=== PATIENT | female | born 1940 | race Caucasian/White ===

== ENCOUNTER → 2020-01-07 | Outpatient (CLI) | payer MEDICARE, OTHER ==
[~2020-01-07] MED LIST: Aspir 8181 MG PO; MELO7.5 PO; PRAVASTATIN SOD10 MG PO; ROSU10TA PO; SOLI5; SOLI5 PO; TUMS500 MG PO; Voltaren100 GM TP
[2020-01-07 13:54] LABS: Stool Occult Bld Immuno 1 Positive (NEGATIVE); Stool Occult Bld Immuno 2 Positive (NEGATIVE)
== END | disposition home or self-care (01) ==
LOC: LAB 08:30 → LAB SHORT 08:30
PROVIDERS: Internal Medicine Gastroenterology
DX: R10.31 Right lower quadrant pain (principal); R74.8 Abnormal levels of other serum enzymes
CPT/HCPCS: 82274

== ENCOUNTER 2020-01-13 08:30 | Day surgery (SDC) | payer MEDICARE, OTHER ==
[~2020-01-13] VITALS: Ht 154.9 cm; Wt 65.0 kg
== END 2020-01-13 11:34 | disposition home or self-care (01) ==
LOC: ORSCSDS 08:30
PROVIDERS: Internal Medicine Gastroenterology
PROC: 0DB68ZX Excision of Stomach, Via Natural or Artificial Opening Endoscopic, Diagnostic (ICD-10-PCS; principal; 2020-01-13 10:15)
PROC: 0DBK8ZX Excision of Ascending Colon, Via Natural or Artificial Opening Endoscopic, Diagnostic (ICD-10-PCS; principal; 2020-01-13 10:15)
DX: R10.31 Right lower quadrant pain (principal); R19.5 Other fecal abnormalities; D12.2 Benign neoplasm of ascending colon; R74.8 Abnormal levels of other serum enzymes; K29.70 Gastritis, unspecified, without bleeding; K31.819 Angiodysplasia of stomach and duodenum without bleeding; Z86.010 Personal history of colon polyps; K57.30 Diverticulosis of large intestine without perforation or abscess without bleeding; Z79.899 Other long term (current) drug therapy
CPT/HCPCS: 87081; 88305; J2704; J7120

== ENCOUNTER → 2020-02-26 | Outpatient (CLI) | payer MEDICARE, OTHER ==
[2020-02-26 14:06] LABS: Stool Occult Bld Immuno 1 Positive (NEGATIVE); Stool Occult Bld Immuno 2 Positive (NEGATIVE)
== END | disposition home or self-care (01) ==
LOC: LAB SHORT 11:14 → LAB 11:14
PROVIDERS: Internal Medicine Gastroenterology
DX: R19.5 Other fecal abnormalities (principal)
CPT/HCPCS: 82274

== ENCOUNTER → 2020-04-19 | Outpatient (CLI) | payer MEDICARE, OTHER ==
[2020-04-20 13:45] LABS: Stool Occult Bld Immuno 1 Negative (NEGATIVE); Stool Occult Bld Immuno 2 Negative (NEGATIVE)
== END | disposition home or self-care (01) ==
PROVIDERS: Internal Medicine Gastroenterology
DX: R19.5 Other fecal abnormalities (principal)

== ENCOUNTER 2022-09-21 13:41 | Emergency (ER) | payer MEDICARE, OTHER ==
[~2022-09-21] VITALS: Ht 157.5 cm; Wt 62.6 kg
[2022-09-21 14:19] LABS: BASOPHILS ABSOLUTE AUTO 0.04 K/mm3 (0.00-0.23); BASOPHILS PERCENT AUTO 1 % (0-2); EOSINOPHILS ABSOLUTE AUTO 0.06 K/mm3 (0.00-0.68); EOSINOPHILS PERCENT AUTO 1 % (0-6); Hematocrit 41.3 % (33.0-51.0); Hemoglobin 14.1 g/dL (11.5-16.0); IMMATURE GRAN ABSOLUTE AUTO 0.02 K/mm3 (0.00-0.10); IMMATURE GRAN PERCENT AUTO 0 % (0-1); LYMPHOCYTES ABSOLUTE AUTO 1.43 K/mm3 (0.84-5.20); LYMPHOCYTES PERCENT AUTO 22 % (21-46); MONOCYTES PERCENT AUTO 6 % (4-13); Mean Corpuscular HGB 32.8 pg (26.0-34.0); Mean Corpuscular HGB Conc 34.1 g/dL (31.5-36.5); Mean Corpuscular Volume 96 fL (80-100); Mean Platelet Volume 8.5 fL (9.1-12.4); NEUTROPHILS ABSOLUTE AUTO 4.67 K/mm3 (1.96-9.15); NEUTROPHILS PERCENT AUTO 71 % (41-73); Platelet Count 243 K/mm3 (150-400); RDW Coefficient Variation 12.4 % (11.7-14.2); RDW Standard Deviation 43.8 fL (35.1-46.3); White Blood Cell Count 6.62 K/mm3 (4.00-11.30)
[2022-09-21 14:30] LABS: Bun/Creatinine Ratio 14.7 (12.0-20.0); Creatinine, Blood 0.75 mg/dL (0.40-1.00)
== END 2022-09-21 17:57 | disposition home or self-care (01) ==
LOC: ER 13:41
PROVIDERS: Student in an Organized Health Care Education/Training Program
DX: R07.89 Other chest pain (principal); I10 Essential (primary) hypertension; E78.5 Hyperlipidemia, unspecified; Z88.5 Allergy status to narcotic agent; Z79.899 Other long term (current) drug therapy
CPT/HCPCS: 36415; 71046; 80048; 84484; 85025; 93005; 93010; 99285-25

== ENCOUNTER 2023-05-20 11:59 | Day surgery (SDC) | payer MEDICARE, OTHER ==
[~2023-05-20] VITALS: Ht 157.5 cm; Wt 63.8 kg
[2023-05-20] MEDS ORDERED: METO50ER PO (12:46)
[2023-05-20] MEDS ORDERED: OMEP20ER PO (12:47)
[2023-05-20] MEDS ORDERED: ATOR40TA PO (12:47)
--- NOTE | 2023-05-20 14:52 | NUR ---
05/20/23 1452 Farhan Silverman IV REMOVED INTACT BY [facility].MES. SITE WNL.
[2023-05-20 14:59] VITALS: BP 122/72
== END 2023-05-20 14:35 | disposition home or self-care (01) ==
LOC: ORSCSDS 11:59
PROVIDERS: Internal Medicine Gastroenterology
PROC: 0DB68ZX Excision of Stomach, Via Natural or Artificial Opening Endoscopic, Diagnostic (ICD-10-PCS; principal; 2023-05-20 13:30)
DX: R07.9 Chest pain, unspecified (principal); R68.81 Early satiety; K29.70 Gastritis, unspecified, without bleeding; Z79.899 Other long term (current) drug therapy
CPT/HCPCS: 88305; 88341; 88342; J2704; J7120